=== PATIENT | male | born 2000 | race Caucasian/White ===

== ENCOUNTER 2021-05-07 09:17 | Emergency (ER) | payer SELFPAY ==
[~2021-05-07] VITALS: Ht 172.7 cm; Wt 61.2 kg
[2021-05-07] MEDS ORDERED: CEFTRIAXONE 1 G VIAL IM ONE (11:00)
[2021-05-07] MEDS ORDERED: CEFTRIAXONE 1 G VIAL ONE (11:11)
[2021-05-07] MEDS ORDERED: LIDOCAINE /MPF 1% VIAL 5 ML VIAL ONE (11:13)
--- NOTE | 2021-05-07 11:18 | NUR ---
URINE COLLECTED AND SENT TO LAB
[2021-05-07] MEDS ORDERED: DOXY100C2 PO (11:25)
[2021-05-07 11:47] VITALS: BP 133/78
--- NOTE | 2021-05-07 11:47 | NUR ---
Patient discharged to home in stable condition. Written and verbal after care instructions given. Patient verbalizes understanding of instruction.
[2021-05-07 11:54] LABS: BILIRUBIN,URINE Negative (NEGATIVE); COLOR,URINE ORANGE (YELLOW); LEUKOCYTE ESTERASE ,URINE Large (NEGATIVE); NITRITE, URINE Positive (NEGATIVE); PROTEIN,URINE Trace mg/dl (NEGATIVE); UGLUCOSE 100 MG/DL mg/dL (NEGATIVE); UROBILINOGEN,URINE 0.2 EU/dL (0.2)
[2021-05-07 12:18] LABS: BACTERIA,URINE Moderate /HPF (None Seen); SQUAMOUS EPITHELIAL CELL,UR Few /HPF (None Seen); WBC,URINE TOO NUMEROUS TO COUN /HPF (0-3)
== END 2021-05-07 11:47 | disposition home or self-care (01) ==
LOC: ER 09:21
DX: A64 Unspecified sexually transmitted disease (principal); R36.9 Urethral discharge, unspecified
CPT/HCPCS: 81001; 87086; 87491; 87591; 96372; 99283; J0696; J3490

== ENCOUNTER 2021-11-07 22:05 | Emergency (ER) | payer MEDICAID ==
[~2021-11-07] VITALS: Ht 170.2 cm; Wt 63.5 kg
[~2021-11-07 22:05] MED LIST: DOXY100C2 PO
--- NOTE | 2021-11-07 22:22 | NUR ---
BIBSELF C/O GENITAL PAIN X 1 WEEK.PT A/OX4. TOLERATING R/A WELL WITH NO SOB. PT AMBULATORY WITH STEADY GAIT. SAFETY MEASURES IN PLACE.
--- NOTE | 2021-11-07 22:24 | NUR ---
URINE COLLECTED AND SENT TO LAB
[2021-11-07 22:26] VITALS: BP 128/74
[2021-11-07] MEDS ORDERED: DOXY-326 PO (22:28)
[2021-11-07] MEDS ORDERED: DOXYCYCLINE HYCLATE (100 MG) 100 MG TABLET PO ONE (22:30)
[2021-11-07] MEDS ORDERED: CEFTRIAXONE 500 MG VIAL IM ONE (22:30)
[2021-11-07] MEDS ORDERED: CEFTRIAXONE 500 MG VIAL ONE (22:32)
[2021-11-07] MEDS ORDERED: DOXYCYCLINE HYCLATE (100 MG) 100 MG TABLET ONE (22:33)
[2021-11-07] MEDS ORDERED: LIDOCAINE /MPF 1% VIAL 5 ML VIAL ONE (22:33)
--- NOTE | 2021-11-07 22:40 | NUR ---
Patient discharged to home in stable condition. Written and verbal after care instructions given. Patient verbalizes understanding of instruction. Pt ambulatory with a steady gait
== END 2021-11-07 22:46 | disposition home or self-care (01) ==
LOC: ER 22:07
DX: A63.8 Other specified predominantly sexually transmitted diseases (principal); Z79.899 Other long term (current) drug therapy
CPT/HCPCS: 96372; 99283; J0696; J3490